=== PATIENT | female | born 1990 | race Caucasian/White ===

== ENCOUNTER 2017-02-16 16:58 | Emergency (ER) | payer BC ==
--- NOTE | 2017-02-16 17:02 | UC ---
Knee Pain HPI - HPI Summary HPI Summary: 26 YEAR OLD FEMALE PRESENTS WITH COMPLAINS OF RIGHT KNEE PAIN. - History of Current Complaint Stated Complaint: RIGHT KNEE PAIN Time Seen by Provider: 02/16/17 17:02 Hx Obtained From: Patient Onset/Duration: Sudden Onset Severity Initially: Moderate Severity Currently: Moderate Character: Sharp, Throbbing Aggravating Factor(s): Movement Associated Signs And Symptoms: Positive: Swelling - Allergies/Home Medications Allergies/Adverse Reactions: Allergies Allergy/AdvReac Type Severity Reaction Status Date / Time No Known Allergies Allergy Verified 02/16/17 17:04 Home Medications: Home Medications Control Pill 1 tab PO DAILY 02/16/17 [History Confirmed 02/16/17] Naproxen TAB* [Naprosyn 250 mg TAB*] 250 mg PO Q8H PRN 02/16/17 [History Confirmed 02/16/17] PMH/Surg Hx/FS Hx/Imm Hx Previously Healthy: Yes Review of Systems Constitutional: Negative Skin: Negative Eyes: Negative ENT: Negative Respiratory: Negative Cardiovascular: Negative Gastrointestinal: Negative Genitourinary: Negative Motor: Negative Neurovascular: Negative Musculoskeletal: Other: - RIHHT KNEE SWELLING Neurological: Negative Psychological: Negative All Other Systems Reviewed And Are Negative: Yes Physical Exam Triage Information Reviewed: Yes Appearance: Well-Appearing Eye Exam: Normal ENT Exam: Normal Dental Exam: Normal Neck exam: Normal Neck: Positive: 1 Respiratory Exam: Normal Cardiovascular Exam: Normal Abdominal Exam: Normal Musculoskeletal: Positive: Other: - RIGHT KNEE SWELLING Neurological Exam: Normal Psychological Exam: Normal Skin Exam: Normal Knee Pain Course/Dx - Differential Dx/Diagnosis Provider Diagnoses: RIGHT KNEE SWELLING Discharge - Discharge Plan Condition: Stable Disposition: HOME Prescriptions: Methylprednisolone [Medrol Dosepak 4 MG*] 4 mg PO .SEE FATMATA INSTRUCTION #21 tab Patient Education Materials: Rheumatoid Arthritis (ED) Referrals: Darrell Gupta MD [Medical Doctor] -
[2017-02-16 17:11] VITALS: BP 110/54
[2017-02-16] MEDS ORDERED: methylPREDNISolone 125 MG* 2 ML VIAL IM ONE (17:18)
== END 2017-02-16 17:55 | disposition home or self-care (01) ==
LOC: UCCORT 16:58
DX: M25.461 Effusion, right knee (principal)
CPT/HCPCS: 96372; 99202; G0463; J2930

== ENCOUNTER 2017-03-06 14:47 | Emergency (ER) | payer BC ==
--- NOTE | 2017-03-06 16:07 | UC ---
Lower Extremity/Ankle HPI - HPI Summary HPI Summary: 26 year old female with a history of juvenile rheumatoid presents with right knee swelling. - History of Current Complaint Stated Complaint: KNEE COMPLAINT Time Seen by Provider: 03/06/17 16:07 Hx Obtained From: Patient Hx Last Menstrual Period: 02/14/17 Onset/Duration: Sudden Onset Severity Initially: Moderate Severity Currently: Moderate Pain Scale Used: 0-10 Numeric - 5 - Allergies/Home Medications Allergies/Adverse Reactions: Allergies Allergy/AdvReac Type Severity Reaction Status Date / Time No Known Allergies Allergy Verified 03/06/17 16:11 Home Medications: Home Medications Norethin Acet & Estrad-Fe [Mibelas 24 Fe 1-20 mg-Mcg(24)] 1 chw PO DAILY [History Confirmed 03/06/17] PMH/Surg Hx/FS Hx/Imm Hx Previously Healthy: Yes - Surgical History Surgical History: None - Social History Alcohol Use: Occasionally Substance Use Type: None Smoking Status (MU): Never Smoked Tobacco Review of Systems Constitutional: Negative Skin: Negative Eyes: Negative ENT: Negative Respiratory: Negative Cardiovascular: Negative Gastrointestinal: Negative Genitourinary: Negative Motor: Negative Neurovascular: Negative Musculoskeletal: Other: - right knee swelling Neurological: Negative Psychological: Negative All Other Systems Reviewed And Are Negative: Yes Physical Exam Triage Information Reviewed: Yes Vital Signs Reviewed: Yes Eye Exam: Normal ENT Exam: Normal Dental Exam: Normal Neck exam: Normal Neck: Positive: 1 Respiratory Exam: Normal Cardiovascular Exam: Normal Abdominal Exam: Normal Musculoskeletal: Positive: Other: - right knee swelling Neurological Exam: Normal Psychological Exam: Normal Skin Exam: Normal Lower Extremity Course/Dx - Differential Dx/Diagnosis Provider Diagnoses: right knee swelling Discharge - Discharge Plan Condition: Stable Disposition: HOME Prescriptions: Meloxicam [Mobic] 7.5 mg PO BID PC #30 tab Patient Education Materials: Swollen Knee Joint (ED), Knee Pain (ED) Referrals: Non Staff,Doctor [Primary Care Provider] -
[2017-03-06 16:11] VITALS: BP 103/58
== END 2017-03-06 16:39 | disposition home or self-care (01) ==
LOC: UCCORT 14:47
DX: M25.461 Effusion, right knee (principal)
CPT/HCPCS: 99212; G0463